=== PATIENT | female | born 1950 | race Caucasian/White ===

== ENCOUNTER 2023-02-20 08:40 | Outpatient (RCR) | payer MEDICARE, OTHER, SELFPAY ==
[2023-02-20 09:10] VITALS: BP 122/50
[2023-02-20] MEDS: XOLAIR 150 MG SC (09:14)
== END 2023-02-20 15:07 | disposition home or self-care (01) ==
LOC: OID 08:40
PROVIDERS: ATTENDING PHYSICIAN Internal Medicine; FAMILY PHYSICIAN Family Medicine
DX: J45.50 Severe persistent asthma, uncomplicated (principal)
CPT/HCPCS: 96372; J2357

== ENCOUNTER → 2023-03-14 14:00 | Outpatient (REF) | payer MEDICARE, OTHER, SELFPAY | LOC: RCS 14:00 | PROVIDERS: ATTENDING PHYSICIAN Internal Medicine Cardiovascular Disease; FAMILY PHYSICIAN Family Medicine | DX: R07.89 Other chest pain (principal) | CPT/HCPCS: 93017; 93350 ==

== ENCOUNTER 2023-04-10 09:09 | Outpatient (RCR) | payer MEDICARE, OTHER, SELFPAY ==
[2023-04-10 09:45] VITALS: BP 119/66
[2023-04-10] MEDS: XOLAIR 150 MG SC (09:48)
[2023-04-10 09:58] VITALS: BMI 16.5
== END 2023-04-10 15:08 | disposition home or self-care (01) ==
LOC: OID 09:09
PROVIDERS: ATTENDING PHYSICIAN Internal Medicine; FAMILY PHYSICIAN Family Medicine
DX: J45.50 Severe persistent asthma, uncomplicated (principal)
CPT/HCPCS: 96372; J2357

== ENCOUNTER 2023-05-29 09:16 | Outpatient (RCR) | payer MEDICARE, OTHER, SELFPAY ==
[2023-05-29 09:20] VITALS: BP 124/66
[2023-05-29] MEDS: XOLAIR 150 MG SC (09:30)
== END 2023-05-30 12:54 | disposition home or self-care (01) ==
LOC: OID 09:16
PROVIDERS: ATTENDING PHYSICIAN Internal Medicine; FAMILY PHYSICIAN Family Medicine
DX: J45.50 Severe persistent asthma, uncomplicated (principal)
CPT/HCPCS: 96372; J2357

== ENCOUNTER → 2023-06-20 11:14 | Outpatient (REF) | payer MEDICARE, OTHER, SELFPAY ==
[2023-06-21 10:41] LABS: Glycohemoglobin (HgbA1c) 5.8 % (4.0-5.6)
== END ==
LOC: HWLAB 11:14
PROVIDERS: ATTENDING PHYSICIAN Internal Medicine Endocrinology, Diabetes & Metabolism; FAMILY PHYSICIAN Family Medicine
DX: R73.9 Hyperglycemia, unspecified (principal)
CPT/HCPCS: 36415; 83036

== ENCOUNTER 2023-07-17 09:19 | Outpatient (RCR) | payer MEDICARE, OTHER, SELFPAY ==
[2023-07-17 09:39] VITALS: BP 104/50
[2023-07-17] MEDS: XOLAIR 150 MG SC (09:50)
== END 2023-07-17 15:53 | disposition home or self-care (01) ==
LOC: OID 09:19
PROVIDERS: ATTENDING PHYSICIAN Internal Medicine; FAMILY PHYSICIAN Family Medicine
DX: J45.50 Severe persistent asthma, uncomplicated (principal)
CPT/HCPCS: 96372; J2357

== ENCOUNTER → 2023-08-11 12:56 | Outpatient (REF) | payer MEDICARE, OTHER, SELFPAY | LOC: HWWDC 12:56 | PROVIDERS: ATTENDING PHYSICIAN Nurse Practitioner Family; FAMILY PHYSICIAN Family Medicine | DX: Z12.31 Encounter for screening mammogram for malignant neoplasm of breast (principal) | CPT/HCPCS: 77063; 77067 ==

== ENCOUNTER 2023-09-04 09:07 | Outpatient (RCR) | payer MEDICARE, OTHER, SELFPAY ==
[2023-09-04 09:24] VITALS: BP 136/75
[2023-09-04] MEDS: XOLAIR 150 MG SC (09:41)
== END 2023-09-05 07:59 | disposition home or self-care (01) ==
LOC: OID 09:07
PROVIDERS: ATTENDING PHYSICIAN Internal Medicine; FAMILY PHYSICIAN Family Medicine
DX: J45.50 Severe persistent asthma, uncomplicated (principal)
CPT/HCPCS: 96372; J2357

== ENCOUNTER 2023-10-25 08:21 | Outpatient (RCR) | payer MEDICARE, OTHER, SELFPAY ==
[2023-10-25 08:57] VITALS: BP 125/50
[2023-10-25] MEDS: XOLAIR 150 MG SC (08:59)
== END 2023-11-06 23:59 | disposition home or self-care (01) ==
LOC: OID 08:21
PROVIDERS: ATTENDING PHYSICIAN Internal Medicine; FAMILY PHYSICIAN Family Medicine
DX: J45.50 Severe persistent asthma, uncomplicated (principal); Z87.891 Personal history of nicotine dependence
CPT/HCPCS: 96372; J2357

== ENCOUNTER 2023-12-11 09:13 | Outpatient (RCR) | payer MEDICARE, OTHER, SELFPAY ==
[2023-12-11 09:20] VITALS: BP 111/58
[2023-12-11] MEDS: XOLAIR 150 MG SC (09:31)
== END 2023-12-11 15:13 | disposition home or self-care (01) ==
LOC: OID 09:13
PROVIDERS: ATTENDING PHYSICIAN Internal Medicine; FAMILY PHYSICIAN Family Medicine
DX: J45.50 Severe persistent asthma, uncomplicated (principal); Z87.891 Personal history of nicotine dependence
CPT/HCPCS: 96372; J2357

== ENCOUNTER → 2024-01-03 07:37 | Outpatient (REF) | payer MEDICARE, OTHER, SELFPAY ==
[2024-01-03 10:25] LABS: ALT (SGPT) 34 U/L (0-35); AST (SGOT) 39 U/L (14-36); Alkaline Phosphatase 65 U/L (38-126); Blood Urea Nitrogen 20 mg/dl (7-17); Calcium 9.2 mg/dl (8.4-10.2); Carbon Dioxide 29 mmol/L (22-30); Chloride 102 mmol/L (98-107); Glucose 86 mg/dl (70-99); Sodium 138 mmol/L (135-145); Total Bilirubin 0.6 mg/dl (0.2-1.3); Total Protein 6.2 g/dl (6.3-8.2); eGFR > 60.00
== END ==
LOC: HWLAB 07:37
PROVIDERS: ATTENDING PHYSICIAN Internal Medicine Rheumatology; FAMILY PHYSICIAN Family Medicine
DX: E55.9 Vitamin D deficiency, unspecified (principal); M81.0 Age-related osteoporosis without current pathological fracture; Z79.899 Other long term (current) drug therapy
CPT/HCPCS: 36415; 80053

== ENCOUNTER 2024-01-29 09:18 | Outpatient (RCR) | payer MEDICARE, OTHER, SELFPAY ==
[2024-01-29] MEDS: XOLAIR 150 MG SC (09:42)
== END 2024-01-30 08:36 | disposition home or self-care (01) ==
LOC: OID 09:18
PROVIDERS: ATTENDING PHYSICIAN Internal Medicine; FAMILY PHYSICIAN Family Medicine
DX: J45.50 Severe persistent asthma, uncomplicated (principal); Z87.891 Personal history of nicotine dependence
CPT/HCPCS: 96372; J2357

== ENCOUNTER 2024-03-18 09:01 | Outpatient (RCR) | payer MEDICARE, OTHER, SELFPAY ==
[2024-03-18 09:30] VITALS: BP 113/50
[2024-03-18] MEDS: XOLAIR 150 MG SC (09:34)
== END 2024-03-19 08:14 | disposition home or self-care (01) ==
LOC: OID 09:01
PROVIDERS: ATTENDING PHYSICIAN Internal Medicine; FAMILY PHYSICIAN Family Medicine
DX: J45.50 Severe persistent asthma, uncomplicated (principal); Z87.891 Personal history of nicotine dependence
CPT/HCPCS: 96372; J2357

== ENCOUNTER → 2024-04-09 11:49 | Outpatient (REF) | payer MEDICARE, OTHER, SELFPAY | LOC: HWRAD 11:49 | PROVIDERS: ATTENDING PHYSICIAN Family Medicine | DX: R05.1 Acute cough (principal) | CPT/HCPCS: 71046 ==

== ENCOUNTER 2024-04-29 08:50 | Outpatient (RCR) | payer MEDICARE, OTHER, SELFPAY ==
[2024-04-29 09:01] VITALS: BP 116/60
[2024-04-29] MEDS: XOLAIR 150 MG SC (09:10)
== END 2024-04-30 09:47 | disposition home or self-care (01) ==
LOC: OID 08:50
PROVIDERS: ATTENDING PHYSICIAN Internal Medicine; FAMILY PHYSICIAN Family Medicine
DX: J45.50 Severe persistent asthma, uncomplicated (principal); Z87.891 Personal history of nicotine dependence
CPT/HCPCS: 96372; J2357

== ENCOUNTER → 2024-05-23 06:41 | Outpatient (REF) | payer MEDICARE, OTHER, SELFPAY ==
[2024-05-23 11:11] LABS: ALT (SGPT) 30 U/L (0-35); AST (SGOT) 29 U/L (14-36); Albumin 4.1 g/dl (3.5-5.0); Alkaline Phosphatase 72 U/L (38-126); Blood Urea Nitrogen 22 mg/dl (7-17); Calcium 9.3 mg/dl (8.4-10.2); Carbon Dioxide 28 mmol/L (22-30); Chloride 101 mmol/L (98-107); Glucose 94 mg/dl (70-99); Potassium 3.8 mmol/L (3.5-5.1); Sodium 137 mmol/L (135-145); Total Bilirubin 0.7 mg/dl (0.2-1.3); Total Protein 6.1 g/dl (6.3-8.2); eGFR > 60.00
[2024-05-23 12:20] LABS: Free T4 1.32 ng/dl (0.78-2.19)
== END ==
LOC: HWLAB 06:41
PROVIDERS: ATTENDING PHYSICIAN Internal Medicine Endocrinology, Diabetes & Metabolism; FAMILY PHYSICIAN Family Medicine
DX: E03.9 Hypothyroidism, unspecified (principal); R73.9 Hyperglycemia, unspecified
CPT/HCPCS: 36415; 80053; 83036; 84439; 84443

== ENCOUNTER 2024-06-10 09:00 | Outpatient (RCR) | payer MEDICARE, OTHER, SELFPAY ==
[2024-06-10] MEDS: XOLAIR 150 MG SC (09:16)
[2024-06-10 09:20] VITALS: BP 122/80
== END 2024-06-11 08:51 | disposition home or self-care (01) ==
LOC: OID 09:00
PROVIDERS: ATTENDING PHYSICIAN Internal Medicine; FAMILY PHYSICIAN Family Medicine
DX: J45.50 Severe persistent asthma, uncomplicated (principal); Z87.891 Personal history of nicotine dependence
CPT/HCPCS: 96372; J2357

== ENCOUNTER 2024-07-22 09:19 | Outpatient (RCR) | payer MEDICARE, OTHER, SELFPAY ==
[2024-07-22 09:29] VITALS: BP 103/52
[2024-07-22] MEDS: XOLAIR 150 MG SC (09:40)
== END 2024-07-23 10:46 | disposition home or self-care (01) ==
LOC: OID 09:19
PROVIDERS: ATTENDING PHYSICIAN Internal Medicine; FAMILY PHYSICIAN Family Medicine
DX: J45.50 Severe persistent asthma, uncomplicated (principal); Z87.891 Personal history of nicotine dependence
CPT/HCPCS: 96372; J2357

== ENCOUNTER 2024-09-02 09:19 | Outpatient (RCR) | payer MEDICARE, OTHER, SELFPAY ==
[2024-09-02 09:25] VITALS: BP 125/65
[2024-09-02] MEDS: XOLAIR 150 MG SC (09:39)
== END 2024-09-03 10:42 | disposition home or self-care (01) ==
LOC: OID 09:19
PROVIDERS: ATTENDING PHYSICIAN Internal Medicine; FAMILY PHYSICIAN Family Medicine
DX: J45.50 Severe persistent asthma, uncomplicated (principal); Z87.891 Personal history of nicotine dependence
CPT/HCPCS: 96372; J2357

== ENCOUNTER → 2024-09-05 10:57 | Outpatient (REF) | payer MEDICARE, OTHER, SELFPAY | LOC: RAD 10:57 | PROVIDERS: ATTENDING PHYSICIAN Student in an Organized Health Care Education/Training Program; FAMILY PHYSICIAN Family Medicine | DX: M79.89 Other specified soft tissue disorders (principal); S99.922S Unspecified injury of left foot, sequela | CPT/HCPCS: 73630 ==

== ENCOUNTER → 2024-09-16 13:50 | Outpatient (REF) | payer MEDICARE, OTHER, SELFPAY | LOC: HWWDC 13:50 | PROVIDERS: ATTENDING PHYSICIAN Obstetrics & Gynecology; FAMILY PHYSICIAN Family Medicine | DX: Z12.31 Encounter for screening mammogram for malignant neoplasm of breast (principal) | CPT/HCPCS: 77063; 77067 ==

== ENCOUNTER → 2024-09-28 10:37 | Outpatient (REF) | payer MEDICARE, OTHER, SELFPAY ==
[2024-09-28 12:16] LABS: Hematocrit 38.2 % (37.0-47.0); Hemoglobin 12.9 g/dL (12.0-16.0); Mean Corp Hgb Conc. 33.8 g/dL (33.0-37.0); Mean Corpuscular Volume 94.3 fL (81.0-99.0); Nucleated Red Blood Cells % 0 %; Platelet Count 218 10^3/uL (130-400); Red Cell Dist. Width 13.0 % (11.5-14.5)
[2024-09-28 12:49] LABS: C-Reactive Protein < 5.00 mg/L (0.0-10.00)
[2024-09-28 12:54] LABS: ALT (SGPT) 35 U/L (0-35); AST (SGOT) 34 U/L (14-36); Albumin 4.3 g/dl (3.5-5.0); Alkaline Phosphatase 67 U/L (38-126); Blood Urea Nitrogen 25 mg/dl (7-17); Calcium 9.2 mg/dl (8.4-10.2); Carbon Dioxide 23 mmol/L (22-30); Chloride 102 mmol/L (98-107); Glucose 159 mg/dl (70-99); Potassium 4.6 mmol/L (3.5-5.1); Sodium 133 mmol/L (135-145); Total Protein 6.3 g/dl (6.3-8.2); eGFR > 60.00
[2024-09-30 15:30] LABS: Rheumatoid Agglutinin Less Than 10 IU (<10 IU)
[2024-09-30 17:57] LABS: ANA, IgG Reflex to HEp-2 None Detected (None Detected)
== END ==
LOC: REG 10:37
PROVIDERS: ATTENDING PHYSICIAN Family Medicine; FAMILY PHYSICIAN Family Medicine
DX: M25.50 Pain in unspecified joint (principal); R79.9 Abnormal finding of blood chemistry, unspecified; Z01.89 Encounter for other specified special examinations; Z79.899 Other long term (current) drug therapy; R53.83 Other fatigue
CPT/HCPCS: 36415; 80053; 85025; 85652; 86038; 86140; 86430; 86618

== ENCOUNTER 2024-10-09 14:19 | Outpatient (RCR) | payer MEDICARE, OTHER, SELFPAY ==
[2024-10-09 14:31] VITALS: BP 121/62
[2024-10-09] MEDS: XOLAIR 150 MG SC (14:47)
== END 2024-10-10 09:32 | disposition home or self-care (01) ==
LOC: OID 14:19
PROVIDERS: ATTENDING PHYSICIAN Internal Medicine; FAMILY PHYSICIAN Family Medicine
DX: J45.50 Severe persistent asthma, uncomplicated (principal); Z87.891 Personal history of nicotine dependence
CPT/HCPCS: 96372; J2357

== ENCOUNTER → 2024-10-14 06:41 | Outpatient (REF) | payer MEDICARE, OTHER, SELFPAY ==
[2024-10-14 09:57] LABS: ALT (SGPT) 35 U/L (0-35); AST (SGOT) 27 U/L (14-36); Albumin 4.3 g/dl (3.5-5.0); Alkaline Phosphatase 58 U/L (38-126); Blood Urea Nitrogen 25 mg/dl (7-17); Calcium 9.5 mg/dl (8.4-10.2); Carbon Dioxide 28 mmol/L (22-30); Chloride 103 mmol/L (98-107); Glucose 99 mg/dl (70-99); HDL Cholesterol 106 mg/dl; LDL Cholesterol, Calculated 102 mg/dl; Potassium 3.9 mmol/L (3.5-5.1); Sodium 137 mmol/L (135-145); Total Protein 6.3 g/dl (6.3-8.2); Very Low Density Lipoprotein 21 mg/dl (0-30); eGFR > 60.00
[2024-10-14 10:24] LABS: TSH 0.58 uIU/ml (0.47-4.68)
[2024-10-14 10:51] LABS: Glycohemoglobin (HgbA1c) 6.0 % (4.0-5.6)
== END ==
LOC: RAD 06:41
PROVIDERS: ATTENDING PHYSICIAN Internal Medicine Cardiovascular Disease; FAMILY PHYSICIAN Family Medicine; REFERRING PHYSICIAN Internal Medicine Endocrinology, Diabetes & Metabolism
DX: I77.9 Disorder of arteries and arterioles, unspecified (principal); E78.5 Hyperlipidemia, unspecified; I65.23 Occlusion and stenosis of bilateral carotid arteries; R73.9 Hyperglycemia, unspecified
CPT/HCPCS: 36415; 80053; 80061; 83036; 84439; 84443; 93880

== ENCOUNTER 2024-12-04 08:56 | Outpatient (RCR) | payer MEDICARE, OTHER, SELFPAY ==
[2024-11-06 09:31] VITALS: BP 95/63
[2024-11-06] MEDS: XOLAIR 150 MG SC (09:46)
[2024-12-04 09:25] VITALS: BP 117/65
[2024-12-04] MEDS: XOLAIR 150 MG SC (09:33)
== END 2024-12-06 23:59 | disposition home or self-care (01) ==
LOC: OID 08:56
PROVIDERS: ATTENDING PHYSICIAN Internal Medicine; FAMILY PHYSICIAN Family Medicine
DX: J45.50 Severe persistent asthma, uncomplicated (principal); Z87.891 Personal history of nicotine dependence
CPT/HCPCS: 96372; J2357

== ENCOUNTER → 2024-12-21 13:20 | Outpatient (REF) | payer MEDICARE, OTHER, SELFPAY | LOC: MRI 3T 13:20 | PROVIDERS: ATTENDING PHYSICIAN Specialist; FAMILY PHYSICIAN Family Medicine | DX: M25.511 Pain in right shoulder (principal) | CPT/HCPCS: 73221 ==

== ENCOUNTER 2025-02-03 09:06 | Outpatient (RCR) | payer MEDICARE, OTHER, SELFPAY ==
[2025-01-06 09:16] VITALS: BP 123/54
[2025-01-06 09:24] VITALS: BP 113/54
[2025-01-06] MEDS: XOLAIR 150 MG SC (09:25)
[2025-02-03 09:15] VITALS: BP 133/63
[2025-02-03] MEDS: XOLAIR 150 MG SC (09:24)
== END 2025-02-05 23:59 | disposition home or self-care (01) ==
LOC: OID 09:06
PROVIDERS: ATTENDING PHYSICIAN Internal Medicine; FAMILY PHYSICIAN Family Medicine
DX: J45.50 Severe persistent asthma, uncomplicated (principal); Z87.891 Personal history of nicotine dependence
CPT/HCPCS: 96372; J2357

== ENCOUNTER → 2025-02-04 16:04 | Outpatient (REF) | payer MEDICARE, OTHER, SELFPAY | LOC: PAVMRI 16:04 | PROVIDERS: ATTENDING PHYSICIAN Specialist; FAMILY PHYSICIAN Family Medicine | DX: M79.601 Pain in right arm (principal) | CPT/HCPCS: 73218 ==